=== PATIENT | female | born 1990 | race Caucasian/White ===

== ENCOUNTER 2024-04-15 10:16 | Day surgery (SDC) | payer BC ==
[2024-04-15 10:39] VITALS: BMI 34.9
[2024-04-15] MEDS ORDERED: hydrALAZINE 20 MG/ML VIAL SLOW IVP PRN (13:27)
== END 2024-04-15 13:35 | disposition home or self-care (01) ==
LOC: CSHLD/OP 10:16
PROVIDERS: ATTEND Student in an Organized Health Care Education/Training Program
DX: Z36.89 Encounter for other specified antenatal screening (principal); O10.913 Unspecified pre-existing hypertension complicating pregnancy, third trimester; O24.415 Gestational diabetes mellitus in pregnancy, controlled by oral hypoglycemic drugs; O34.219 Maternal care for unspecified type scar from previous cesarean delivery; Z3A.37 37 weeks gestation of pregnancy; Z79.899 Other long term (current) drug therapy
CPT/HCPCS: 99282

== ENCOUNTER 2024-04-20 09:58 | Inpatient (IN) | payer BC ==
[2024-04-17 13:08] LABS: Hemoglobin 11.9 g/dL (12.0-15.5); Mean Corpuscular Hemoglobin 29.1 pg (27.0-33.0); Mean Corpuscular Volume 85.6 fL (81.6-98.3); Mean Platelet Volume 10.2 fL (7.4-10.4); Platelet Count 286 10x3/uL (150-450); RBC Distribution Width 13.6 % (11.5-14.5); Red Blood Cell (RBC) Count 4.09 10x6/uL (3.90-5.03); White Blood Cell (WBC) Count 9.7 10x3/uL (3.5-10.5)
[2024-04-17 13:36] LABS: HBsAg Index 0.25 S/CO (0-0.99); Hep B Surf Ag Non-Reactive S/CO (NonReactive)
[2024-04-17 13:38] LABS: Syphilis Antibody Nonreactive (Nonreactive); Syphilis Antibody Index 0.04 S/CO (<1.00 Non-Reactive)
[2024-04-20] MEDS ORDERED: Ondansetron PF 4 MG/2 ML Vial IVP PRN ×2 (10:07→12:02)
[2024-04-20] MEDS ORDERED: Famotidine/PF 20 mg/2ml Vial SLOW IVP PRN (10:07)
[2024-04-20] MEDS ORDERED: Diphenoxylate HCl/Atropine Tablet PO PRN (10:07)
[2024-04-20] MEDS ORDERED: Misoprostol 200 MCG TAB PR PRN (10:07)
[2024-04-20] MEDS ORDERED: Carboprost 250 MCG/ML AMP IM PRN (10:07)
[2024-04-20] MEDS ORDERED: Bicitra 30 ML UDCUP PO PRN (10:07)
[2024-04-20] MEDS ORDERED: Promethazine HCl 25 MG/ML VIAL IM PRN ×3 (10:07→15:09)
[2024-04-20] MEDS ORDERED: hydrALAZINE 20 MG/ML VIAL SLOW IVP PRN ×2 (10:07→15:09)
[2024-04-20] MEDS ORDERED: Oxytocin 30 units/NS 500 ML 500 ML IV SCH (10:15)
[2024-04-20] MEDS ORDERED: Lactated Ringer's 1,000 ML IV SCH (10:15)
[2024-04-20 10:19] VITALS: BMI 35.9
[2024-04-20 11:02] LABS: ALT (SGPT) 17 U/L (8-55); AST (SGOT) 16 U/L (5-34); Albumin 3.1 g/dL (3.5-5.0); Alkaline Phosphatase 198 U/L (40-110); Anion Gap 15 mmol/L (10-20); BUN (Urea Nitrogen) 6 mg/dL (7.0-18.7); Bilirubin, Total 0.4 mg/dL (0.2-1.2); Calc. Creatinine Clearance 250 mL/min (70-130); Calcium 9.6 mg/dL (7.8-10.44); Carbon Dioxide 18 mmol/L (22-29); Chloride 108 mmol/L (98-107); Estimated GFR 126; Globulin 3.7 g/dL (2.4-3.5); Glucose 99 mg/dL (70-105); Potassium 3.9 mmol/L (3.5-5.1); Protein, Total 6.8 g/dL (6.0-8.3); Sodium 137 mmol/L (136-145)
[2024-04-20] MEDS: CEFAZOLIN 2 GM in Sodium Chloride 0.9% 100 ML IVPB SCH (11:28)
[2024-04-20] MEDS ORDERED: Naloxone HCl 0.4 mg/ml Vial IVP PRN ×2 (12:02)
[2024-04-20] MEDS ORDERED: Meperidine HCl/PF 25 MG (1 mL) VIAL SLOW IVP PRN (12:02)
[2024-04-20] MEDS ORDERED: Moisturizing Cream (Eucerin) 113 GM JAR TOP PRN (12:02)
[2024-04-20] MEDS ORDERED: fentaNYL 50 mcg/mL 1 mL Vial SLOW IVP PRN (12:02)
[2024-04-20] MEDS ORDERED: diphenhydrAMINE 50 MG/ML VIAL IVP PRN (12:02)
[2024-04-20] MEDS ORDERED: Naloxone HCl 0.4 mg/ml Vial IV PRN (12:02)
[2024-04-20] MEDS ORDERED: Communication Order-Pharmacy FS SCH (12:15)
[2024-04-20] MEDS ORDERED: diphenhydrAMINE 25 MG CAP PO PRN (15:09)
[2024-04-20] MEDS ORDERED: Lanolin Ointment 7 GM TUBE TOP PRN (15:09)
[2024-04-20] MEDS ORDERED: Bisacodyl 10 MG SUPP PR PRN (15:09)
[2024-04-20] MEDS ORDERED: Acetaminophen 325 MG TAB PO PRN (15:09)
[2024-04-20] MEDS: Ondansetron PF 4 MG/2 ML Vial IVP PRN ×2 (15:40→21:19)
[2024-04-20] MEDS: Phenylephrine 40 MG/NS 250 ML 250 ML ONE (16:22)
[2024-04-20] MEDS: Ketorolac Tromethamine 30 MG (1 mL) VIAL ONE (16:22)
[2024-04-20] MEDS: Morphine PF 10 MG/10 ML VIAL ONE (16:22)
[2024-04-20] MEDS: Sodium Chloride 0.9% 10 ML ONE (16:22)
[2024-04-20] MEDS: Ondansetron PF 4 MG/2 ML Vial ONE (16:22)
[2024-04-20] MEDS: Dexamethasone 4 mg/ml Vial ONE (16:22)
[2024-04-20] MEDS: Sodium Bicarbonate 2.5 MEQ/5 ML SDV ONE (16:22)
[2024-04-20] MEDS: Dexmedetomidine 200 MCG/2 ML VIAL ONE (16:22)
[2024-04-20] MEDS: Boostrix 0.5 ML (Tdap) VIAL (>/=7 yrs of age) IM ONE (16:23)
[2024-04-20] MEDS: Oxytocin 10 UNITS/ML VIAL ONE (16:23)
[2024-04-20] MEDS: Oxytocin 30 units/NS 500 ML 500 ML ONE (16:53)
[2024-04-20] MEDS: Misoprostol 200 MCG TAB PO SCH (17:18)
[2024-04-20] MEDS: Ketorolac Tromethamine 30 MG (1 mL) VIAL IVP SCH (18:24)
[2024-04-20] MEDS: Simethicone Chewable 80 MG TAB PO PRN (18:25)
[2024-04-20] MEDS: Labetalol HCl 200 MG TAB PO SCH (21:19)
[2024-04-20] MEDS: Docusate 100 MG CAP PO SCH (21:19)
[2024-04-20] MEDS: Ferrous Sulfate 325 MG TAB PO SCH (21:20)
[2024-04-21] MEDS ORDERED: HYDROcodone/Acetaminophen 5/325 mg Tablet PO PRN (00:15)
[2024-04-21 04:24] LABS: Hemoglobin 9.2 g/dL (12.0-15.5); Mean Corpuscular HGB CONC 34.1 g/dL (32.0-36.0); Mean Corpuscular Hemoglobin 28.9 pg (27.0-33.0); Mean Corpuscular Volume 84.9 fL (81.6-98.3); Mean Platelet Volume 10.4 fL (7.4-10.4); Platelet Count 258 10x3/uL (150-450); RBC Distribution Width 13.5 % (11.5-14.5); Red Blood Cell (RBC) Count 3.18 10x6/uL (3.90-5.03); White Blood Cell (WBC) Count 16.1 10x3/uL (3.5-10.5)
[2024-04-21] MEDS: Prenatal Vitamin 1 TAB PO SCH (08:22)
[2024-04-21] MEDS: Ibuprofen 800 MG TAB PO SCH (17:09)
[2024-04-21] MEDS: HYDROcodone/Acetaminophen 5/325 mg Tablet PO PRN (17:12)
[2024-04-22 08:47] VITALS: BP 139/82; TEMP 98.1
== END 2024-04-22 10:55 | disposition home or self-care (01) | DRG 787 ==
LOC: CSHLD 09:58 → CSHPP 15:26
PROVIDERS: ADMIT Student in an Organized Health Care Education/Training Program; ATTEND Student in an Organized Health Care Education/Training Program
PROC: 10D00Z1 Extraction of Products of Conception, Low, Open Approach (ICD-10-PCS; principal; 2024-04-20)
DX: O34.211 Maternal care for low transverse scar from previous cesarean delivery (principal); O10.92 Unspecified pre-existing hypertension complicating childbirth; O24.425 Gestational diabetes mellitus in childbirth, controlled by oral hypoglycemic drugs; Z3A.38 38 weeks gestation of pregnancy; Z37.0 Single live birth; Z79.82 Long term (current) use of aspirin; Z79.84 Long term (current) use of oral hypoglycemic drugs
CPT/HCPCS: 36415; 51702; 80053; 85027; 86780; 86850; 86900; 86901; 87340; J1100; J1885; J2274; J2405; J2590; J3490

== ENCOUNTER 2024-04-23 10:35 | Inpatient (IN) | payer BC ==
[2024-04-23 11:42] VITALS: BMI 35.7
[2024-04-23] MEDS: NIFEdipine XL 30 MG ER.TAB PO SCH (11:43)
[2024-04-23 12:12] LABS: #Basophils 0.04 10x3/uL (0.0-0.2); #Eosinphils 0.31 10x3/uL (0.0-0.5); #Monocytes 0.81 10x3/uL (0.0-1.1); #Neutrophils 6.44 10x3/uL (1.5-8.4); %Basophils 0.4 % (0.0-2.0); %Eosinophils 3.2 % (0.0-6.0); %Lymphocytes 20.9 % (18.0-47.0); %Monocytes 8.4 % (0.0-10.0); %Neutrophils 66.5 % (40.0-75.0); Hematocrit 28.6 % (34.9-44.5); Hemoglobin 9.5 g/dL (12.0-15.5); Mean Corpuscular HGB CONC 33.2 g/dL (32.0-36.0); Mean Corpuscular Hemoglobin 29.2 pg (27.0-33.0); Platelet Count 291 10x3/uL (150-450); RBC Distribution Width 13.6 % (11.5-14.5); Red Blood Cell (RBC) Count 3.25 10x6/uL (3.90-5.03); White Blood Cell (WBC) Count 9.7 10x3/uL (3.5-10.5)
[2024-04-23 12:32] LABS: ALT (SGPT) 37 U/L (8-55); AST (SGOT) 45 U/L (5-34); Albumin 2.6 g/dL (3.5-5.0); Alkaline Phosphatase 141 U/L (40-110); Anion Gap 14 mmol/L (10-20); BUN (Urea Nitrogen) 6 mg/dL (7.0-18.7); Bilirubin, Total 0.3 mg/dL (0.2-1.2); Calc. Creatinine Clearance 249 mL/min (70-130); Calcium 9.3 mg/dL (7.8-10.44); Carbon Dioxide 24 mmol/L (22-29); Chloride 106 mmol/L (98-107); Estimated GFR 126; Globulin 3.2 g/dL (2.4-3.5); Glucose 79 mg/dL (70-105); Potassium 3.7 mmol/L (3.5-5.1); Protein, Total 5.8 g/dL (6.0-8.3); Sodium 140 mmol/L (136-145)
[2024-04-23] MEDS ORDERED: Ondansetron PF 4 MG/2 ML Vial IVP PRN (12:58)
[2024-04-23] MEDS ORDERED: Zolpidem Tartrate 5 MG TAB PO PRN (12:58)
[2024-04-23] MEDS ORDERED: Acetaminophen 500 MG TAB PO PRN (12:58)
[2024-04-23] MEDS ORDERED: Calcium Gluc 4.6 MEQ/10 ML (100 MG/ML) SLOW IVP PRN ×2 (12:58→16:50)
[2024-04-23] MEDS ORDERED: Lorazepam 2 MG/ML VIAL SLOW IVP PRN ×3 (12:58→16:50)
[2024-04-23] MEDS ORDERED: hydrALAZINE 20 MG/ML VIAL SLOW IVP PRN (12:58)
[2024-04-23] MEDS ORDERED: Promethazine HCl 25 MG/ML VIAL IM PRN (12:58)
[2024-04-23] MEDS: hydrALAZINE 20 MG/ML VIAL SLOW IVP PRN ×2 (13:01→13:44)
[2024-04-23] MEDS: Magnesium Sulfate 20 gm/500 ml 20 GM/500 ML BAG ONE (13:19)
[2024-04-23] MEDS ORDERED: Labetalol HCl 100 MG/20 ML VIAL SLOW IVP PRN (14:03)
[2024-04-23] MEDS: Ibuprofen 800 MG TAB PO SCH (14:50)
[2024-04-23] MEDS: Labetalol HCl 200 MG TAB PO SCH ×2 (15:06→21:01)
[2024-04-23] MEDS ORDERED: Labetalol HCl 100 MG/20 ML VIAL ONE (15:10)
[2024-04-23] MEDS: Labetalol HCl 100 MG/20 ML VIAL SLOW IVP PRN (15:12)
[2024-04-23] MEDS ORDERED: NIFEdipine 10 MG CAP PO PRN ×2 (16:50)
[2024-04-23] MEDS: HYDROcodone/Acetaminophen 5/325 mg Tablet PO SCH (17:11)
[2024-04-23] MEDS: Ferrous Sulfate 325 MG TAB PO SCH (17:12)
[2024-04-23] MEDS: guaiFENesin ER 600 MG TAB PO PRN (17:15)
[2024-04-23] MEDS: Magnesium Sulfate 20 gm/500 ml 20 GM/500 ML BAG IVPB SCH (21:26)
[2024-04-24] MEDS: Ibuprofen 800 MG TAB PO SCH (00:02)
[2024-04-24] MEDS: HYDROcodone/Acetaminophen 5/325 mg Tablet PO PRN (00:54)
[2024-04-24] MEDS: Docusate 100 MG CAP PO PRN (08:51)
[2024-04-24] MEDS ORDERED: NIFEdipine XL 30 MG ER.TAB PO SCH (09:00)
[2024-04-24 22:06] VITALS: BP 141/85
== END 2024-04-25 12:20 | disposition home or self-care (01) | DRG 776 ==
LOC: CSHERS 10:35 → EDSTATUS 10:46 → CSHLD/OP 10:50 → CSHLD 13:35
PROVIDERS: ADMIT Student in an Organized Health Care Education/Training Program; ATTEND Student in an Organized Health Care Education/Training Program
DX: O11.5 Pre-existing hypertension with pre-eclampsia, complicating the puerperium (principal); Z79.899 Other long term (current) drug therapy
CPT/HCPCS: 80053; 85025; J0360; J3475

== ENCOUNTER 2024-05-15 21:46 | Emergency (ER) | payer BC ==
[2024-05-15] MEDS ORDERED: NIFEdipine XL 30 MG ER.TAB ONE (22:50)
== END 2024-05-15 22:58 | disposition home or self-care (01) ==
LOC: CSHERS 21:46
DX: I10 Essential (primary) hypertension (principal)
CPT/HCPCS: 99283

== ENCOUNTER 2024-05-19 15:58 | Inpatient (IN) | payer BC ==
[2024-05-19 18:05] VITALS: BMI 34.9
== END 2024-05-19 20:35 | disposition home or self-care (01) | DRG 776 ==
LOC: CSHERS 15:58 → CSHLD 16:50
PROVIDERS: ADMIT Obstetrics & Gynecology; ATTEND Obstetrics & Gynecology
DX: O14.15 Severe pre-eclampsia, complicating the puerperium (principal); Z98.891 History of uterine scar from previous surgery; O24.435 Gestational diabetes mellitus in puerperium, controlled by oral hypoglycemic drugs
CPT/HCPCS: 80053; 83735; 83880; 84443; 84703; 85025; 93005; 96374; 96375; 96376; J3475